=== PATIENT | female | born 1975 | race Caucasian/White ===

== ENCOUNTER 2016-08-02 04:31 | Emergency (ER) | payer BC ==
[~2016-08-02] VITALS: Ht 154.9 cm; Wt 68.0 kg
[~2016-08-02 04:31] MED LIST: ASPI1TAB30
[2016-08-02 04:39] VITALS: Ht 154.9 cm; Wt 68.0 kg
[2016-08-02] MEDS ORDERED: ACET/BUTAL/CAFF/CODEINE CAP PO ONE (05:00)
--- NOTE | 2016-08-02 05:17 | ERD ---
ER Documentation Chief Complaint Date/Time DATE: 08/02/16 TIME: 05:14 Chief Complaint WORST HEADACHE OF HER LIFE. HX MIGRAINES. HPI 41-year-old female presents to emergency department for complains of headache that started this morning. Patient describes the headache as throbbing pain, 8/ 10 scale, is worse upon seeing bright lights and hearing loud noises. Patient has history of migraine before, took Excedrin at home with only mild relief. Patient denies any nausea or vomiting. Patient denies any fever or chills. Patient denies any head injury. Patient denies any changes in balance or memory. ROS All systems reviewed and are negative except as per history of present illness. Medications Home Meds Active Scripts Wtnptsahgacih-Ufhpwrqqqu-Phcagygs-Codeine* (Fioricet w/ Codeine*) [id number]- 30MG Capsule, 1 CAP PO Q6H Y for PAIN LEVEL 1-5, #20 CAP Prov:KIMBERLY JENKINS [employer]ENSATION CLAIMS ASSISTANT 08/02/16 Reported Medications Aspirin/Acetaminophen/Caffeine (Excedrin Migraine Caplet) 1 Tab Tablet 10/17/09 Allergies Allergies: Uncoded Allergies: UNK IV Contrast (Allergy, Mild, 10/17/09) PMhx/Soc History of Surgery: Yes (3 , breast implants) Anesthesia Reaction: No Hx Neurological Disorder: Yes (hx migraine HAs) Hx Respiratory Disorders: No Hx Cardiac Disorders: No Hx Psychiatric Problems: No Hx Miscellaneous Medical Probl: No Hx Alcohol Use: No Hx Substance Use: No Hx Tobacco Use: No Smoking Status: Never smoker FmHx Family History: No coronary disease, No diabetes, No other Physical Exam Vitals Vital Signs Date Time Temp Pulse Resp B/P Pulse Ox O2 Delivery O2 Flow Rate FiO2 08/02/16 04:39 97.4 64 20 135/77 97 Physical Exam GENERAL: The patient is well developed and appropriate for usual state of health, in no apparent distress. CHEST: Clear to auscultation bilaterally. There are no rales, wheezes or rhonchi. HEART: Regular rate and rhythm. No murmurs, clicks, rubs or gallops. No S3 or S4. ABDOMEN: Soft, nontender and nondistended. Good bowel sounds. No rebound or guarding. No gross peritonitis. No gross organomegaly or masses. No Ortiz sign or McBurney point tenderness. BACK: No midline or flank tenderness. EXTREMITIES: Equal pulses bilaterally. There is no peripheral clubbing, cyanosis or edema. No focal swelling or erythema. Full range of motion. Grossly neurovascularly intact. NEURO: Alert and oriented. Cranial nerves 2-12 intact. Motor strength in all 4 extremities with 5/5 strength. Sensation grossly intact. Normal speech and gait. Negative Romberg sign. Negative pronator drift. SKIN: There is no apparent rash or petechia. The skin is warm and dry. HEMATOLOGIC AND LYMPHATIC: There is no evidence of excessive bruising or lymphedema. No gross cervical, axillary, or inguinal lymphadenopathy. Results 24 hrs Current Medications Medications (Trade) Dose Ordered Sig/Sanaz Route PRN Reason Start Time Stop Time Status Last Admin Dose Admin Acetam/Butalbital/ Caffeine/Codeine (Fioricet/ Codeine) 1 cap ONCE ONCE PO 08/02/16 05:00 08/02/16 05:01 DC 08/02/16 05:17 Patient was given medication for pain here in emergency department, after treatment, patient verbalized feeling much better. Patient's pain is improved. PROCEDURE: CT Brain without. CLINICAL INDICATION: Headache TECHNIQUE: A CT of the brain was performed utilizing axial sections from the skull base through the vertex without contrast. The scan was reviewed in soft tissue brain and high frequency resolution bone algorithm windows. Images were reviewed on a high-resolution PACS workstation. The exam CTDI = 45.01 mGy, and the DLP = 720.23 mGy-cm. COMPARISON: None available FINDINGS: The ventricles are normal in size and midline in position. There is no intracranial hemorrhage, midline shift, or mass effect. No abnormal extra- axial fluid collections are identified. The mazariegos-white differentiation is well preserved. The basal cisterns are patent. The posterior fossa is unremarkable. The visualized portions of the orbits are unremarkable. The paranasal sinuses and mastoid air cells are clear. No calvarial fracture or abnormality are identified. The soft tissues are unremarkable. IMPRESSION: Unremarkable CT of the brain. RPTAT: HH .Alejandrina Tuttle MD, MD Date Time Electronically viewed and signed by .Alejandrina Tuttle MD, on 08/02/2016 06 :01 .G/ CC: KIMBERLY JENKINS NP Procedures/MDM Medical Decision Making: Patient's symptoms of headache most likely consistent with migraine headache flareup. There is low suspicion for neurological emergencies at this time since patients neurologic exam is normal. Patient did not have any altered level consciousness, vomiting, changes in balance or memory after incident. Patients CT scan of the head does not show any neurological emergencies at this time. Patient was given for Fioricet with codeine, is advised to follow-up with primary care doctor in 2-3 days for reevaluation of symptoms. Patient is advised to return to emergency department for worsening symptoms. Dispostion: Home. Stable Departure Diagnosis: Primary Impression: Headache Headache type: unspecified Headache chronicity pattern: acute headache Intractability: not intractable Qualified Code: R51 - Acute nonintractable headache, unspecified headache type Condition: Stable Patient Instructions: Headache, Unspecified KIMBERLY JENKINS NP Aug 02, 2016 05:17
--- NOTE | 2016-08-02 06:02 | RADRPT ---
PROCEDURE: CT Brain without. CLINICAL INDICATION: Headache TECHNIQUE: A CT of the brain was performed utilizing axial sections from the skull base through th e vertex without contrast. The scan was reviewed in soft tissue brain and high frequency resolution bone algorithm windows. Images were reviewed on a high-resolution PACS workstation. The exam CTDI = 45.01 mGy, and the DLP = 720.23 mGy-cm. COMPARISON: None available FINDINGS: The ventricles are normal in size and midline in position. There is no intracranial hemorrhage, mid line shift, or mass effect. No abnormal extra-axial fluid collections are identified. The mazariegos-whi te differentiation is well preserved. The basal cisterns are patent. The posterior fossa is unrema rkable. The visualized portions of the orbits are unremarkable. The paranasal sinuses and mastoid air cells are clear. No calvarial fracture or abnormality are identified. The soft tissues are unremarkable . IMPRESSION: Unremarkable CT of the brain. RPTAT: HH .Alejandrina Tuttle MD, MD Date Time Electronically viewed and signed by .Alejandrina Tuttle MD, on 08/02/2016 06:01 .G/
[2016-08-02] MEDS ORDERED: BUTA1CAP39 PO (06:04)
[2016-08-02 06:17] VITALS: BP 111/67; PULSE 61; RESP 16
== END 2016-08-02 06:19 | disposition home or self-care (01) ==
LOC: FTE 04:31
DX: R51 Headache (principal); Z79.82 Long term (current) use of aspirin
CPT/HCPCS: 70450; Z7502; Z7610

== ENCOUNTER 2016-08-04 00:05 | Emergency (ER) | payer BC ==
[~2016-08-04] VITALS: Wt 68.5 kg
[~2016-08-04 00:05] MED LIST changes: +BUTA1CAP39 PO
[2016-08-04 02:06] LABS: URINE BLOOD (Dip) POC Negative (NEGATIVE)
[2016-08-04] MEDS ORDERED: DIPHENHYDRAMINE 50 MG INJ IV STA (02:07)
[2016-08-04] MEDS ORDERED: morphine 4 MG/ML VIAL IV STA (02:07)
[2016-08-04] MEDS ORDERED: ONDANSETRON 4 MG INJ IV STA (02:07)
[2016-08-04] MEDS ORDERED: SOD CHLORIDE 0.9% 1,000 ML IV STA (02:07)
[2016-08-04] MEDS ORDERED: ASPI1TAB30 PO (02:18)
[2016-08-04] MEDS ORDERED: LORAZEPAM 2 MG INJ ONE (03:18)
[2016-08-04] MEDS ORDERED: LORAZEPAM 2 MG INJ IV ONE (03:30)
--- NOTE | 2016-08-04 04:11 | RADRPT ---
PROCEDURE: CT Brain without contrast. CLINICAL INDICATION: Headache TECHNIQUE: Axial images from the skull base through the vertex without IV contrast. Multiplanar r eformatted images were made. Images were reviewed on a PACS workstation. The CTDIvol is 45.01 mGy and the DLP is 720.23 mGycm. One or more of the following dose reduction techniques were used: auto mated exposure control, adjustment of the mA and/or kV according to patient size, or use of iterativ e reconstruction technique. COMPARISON: 08/02/2016 FINDINGS: The ventricles and cisterns are normal for age. There is no evidence for territorial infarction or intracranial hemorrhage. No mass or midline shift is seen. No extra-axial fluid collection is seen . The visualized paranasal sinuses and mastoids are clear. IMPRESSION: No definite acute intracranial abnormality. RPTAT: [facility] Physician Nguyen Date Time Electronically viewed and signed by Physician Nguyen on 08/04/2016 04:11 BINA/
[2016-08-04 05:10] VITALS: BP 133/68; PULSE 78; RESP 19
--- NOTE | 2016-08-04 05:46 | ERD ---
ER Documentation Chief Complaint Date/Time DATE: 08/04/16 TIME: 05:45 Chief Complaint Headache and tingling of the lips and dizziness, Nausea and vomiting HPI This is a 41 female comes in with cephalgia and tingling of the lips of dizziness nausea vomiting that started a few days ago. It got worse today. Patient has been seen in 2 different ERs with 2 full workups which were negative. One of them was here. Imaging was reviewed. Pain is moderate to severe intensity with associated photophobia and tingling of the lips. No focal neurological complaints. No focal weakness. No dysarthria. No head trauma acute or remote. No other current issues. ROS All systems reviewed and are negative except as per history of present illness. Medications Home Meds Reported Medications Aspirin/Acetaminophen/Caffeine (Excedrin Migraine Caplet) 1 Each Tablet, 1 EACH PO, TAB 08/04/16 Discontinued Reported Medications Aspirin/Acetaminophen/Caffeine (Excedrin Migraine Caplet) 1 Tab Tablet 10/17/09 Discontinued Scripts Sktytxijftcfl-Jdyedwayna-Emkqiezi-Codeine* (Fioricet w/ Codeine*) [id number]- 30MG Capsule, 1 CAP PO Q6H Y for PAIN LEVEL 1-5, #20 CAP Prov:KIMBERLY JENKINS COMMODITIES MANAGER 08/02/16 Allergies Allergies: Uncoded Allergies: UNK IV Contrast (Allergy, Mild, 10/17/09) PMhx/Soc History of Surgery: Yes (3 , breast implants) Anesthesia Reaction: No Hx Neurological Disorder: Yes (hx migraine HAs) Hx Respiratory Disorders: No Hx Cardiac Disorders: No Hx Psychiatric Problems: No Hx Miscellaneous Medical Probl: No Hx Alcohol Use: No Hx Substance Use: No Hx Tobacco Use: No Smoking Status: Never smoker Physical Exam Vitals Vital Signs Date Time Temp Pulse Resp B/P Pulse Ox O2 Delivery O2 Flow Rate FiO2 08/04/16 05:10 78 19 133/68 99 Room Air 08/04/16 02:47 78 20 156/81 99 Room Air 08/04/16 00:11 99.4 70 20 161/84 100 Physical Exam Const: [] Head: Atraumatic Eyes: Normal Conjunctiva ENT: Normal External Ears, Nose and Mouth. Neck: Full range of motion..~ No meningismus. Resp: Clear to auscultation bilaterally Cardio: Regular rate and rhythm, no murmurs Abd: Soft, non tender, non distended. Normal bowel sounds Skin: No petechiae or rashes Back: No midline or flank tenderness Ext: No cyanosis, or edema Neur: Awake and alert Psych: Normal Mood and Affect Results 24 hrs Laboratory Tests Test 08/04/16 02:08 Bedside Urine pH (LAB) 6.5 Bedside Urine Protein (LAB) Negative Bedside Urine Glucose (UA) Negative Bedside Urine Ketones (LAB) Negative Bedside Urine Blood Negative Bedside Urine Nitrite (LAB) Negative Bedside Urine Leukocyte Esterase (L Negative Current Medications Medications (Trade) Dose Ordered Sig/Sanaz Route PRN Reason Start Time Stop Time Status Last Admin Dose Admin Sodium Chloride (NS) 1,000 ml @ 1,000 mls/hr Q1H STAT IV 08/04/16 02:07 08/04/16 03:06 DC 08/04/16 02:15 Ondansetron HCl (Zofran Inj) 4 mg ONCE STAT IV 08/04/16 02:07 08/04/16 02:09 DC 08/04/16 02:16 Morphine Sulfate (morphine) 4 mg ONCE STAT IV 08/04/16 02:07 08/04/16 02:09 DC 08/04/16 02:16 Diphenhydramine HCl (Benadryl) 25 mg ONCE STAT IV 08/04/16 02:07 08/04/16 02:09 DC 08/04/16 02:16 Lorazepam (Ativan) 1 mg ONCE ONCE IV 08/04/16 03:30 08/04/16 03:31 DC 08/04/16 03:21 Lorazepam (Ativan) 2 mg STK-MED ONCE .ROUTE 08/04/16 03:18 08/04/16 03:19 DC Procedures/MDM Patient's neurologic symptoms have stabilized while they have been evaluated in the department and are appropriate for outpatient work up. No e/o meningitis, intracranial bleed, seizure, stroke. Patient symptomology likely represents tension headache. Patient responded well to Ativan. Patient will be discharged home with short course of lorazepam until the follow-up with primary care physician. Departure Diagnosis: Primary Impression: Headache Headache type: tension-type Headache chronicity pattern: acute headache Intractability: not intractable Qualified Code: G44.209 - Acute non intractable tension-type headache Condition: Stable SHYANNE MCLEOD Aug 04, 2016 05:46
[2016-08-04] MEDS ORDERED: LORA1TAB PO (05:47)
[2016-08-04] MEDS ORDERED: ONDA4TAB14 PO (05:47)
[2016-08-04] MEDS ORDERED: KETOROLAC 30 MG INJ IV ONE (05:56)
== END 2016-08-04 07:39 | disposition home or self-care (01) ==
LOC: E/R 00:05
DX: G44.209 Tension-type headache, unspecified, not intractable (principal); R11.2 Nausea with vomiting, unspecified; R40.2142 Coma scale, eyes open, spontaneous, at arrival to emergency department; R40.2252 Coma scale, best verbal response, oriented, at arrival to emergency department; R40.2362 Coma scale, best motor response, obeys commands, at arrival to emergency department
CPT/HCPCS: 70450; 81003; 96374; 96375; J1200; J1885; J2060; J2270; J2405; J7030; Z7502

== ENCOUNTER 2018-02-23 07:13 | Emergency (ER) | END 2018-02-23 08:30 | disposition home or self-care (01) ==